=== PATIENT | female | born 1965 | race Caucasian/White ===

== ENCOUNTER 2017-03-13 09:56 | Inpatient (IN) | payer OTHER ==
[2017-03-13 11:45] LABS: % IMMATURE GRANULYOCYTES 0.3 % (0.0-1.1); ABSOLUTE IMMATURE GRANULOCYTES 0.01 10^3/uL (0.00-0.10); ADD DIFF? NO; ADD MORPH? NO; ADD SCAN? NO; ATYPICAL LYMPHOCYTE FLAG 10 (0-99); FRAGMENT RBC FLAG 0 (0-99); HEMATOCRIT 41.7 % (38.0-47.0); HEMOGLOBIN 14.3 g/dL (12.6-16.3); LEFT SHIFT FLG 0 (0-99); LIPEMIA HEMOLYSIS FLAG 90 (0-99); MEAN CELL HEMOGLOBIN 31.6 pg (27.9-34.1); MEAN CELL HEMOGLOBIN CONCENTR. 34.3 g/dL (32.4-36.7); MEAN CELL VOLUME 92.1 fL (81.5-99.8); MEAN PLATELET VOLUME 9.4 fL (8.7-11.7); PLATELET CLUMPS FLAG 0 (0-99); PLATELET COUNT 186 10^3/uL (150-400); RED BLOOD CELL COUNT 4.53 10^6/uL (4.18-5.33); RED CELL DISTRIBUTION WIDTH 11.9 % (11.5-15.2)
[2017-03-13 12:00] LABS: ANION GAP 9 mEq/L (8-16); CALCIUM 9.5 mg/dL (8.5-10.4); CARBON DIOXIDE 24 mEq/l (22-31); CHLORIDE 108 mEq/L (97-110); CREATININE 0.6 mg/dL (0.6-1.0); ETHANOL SERUM < 10 mg/dL (0-10); GLOMERULAR FILTRATION RATE > 60; GLUCOSE 93 mg/dL (70-100); POTASSIUM 3.9 mEq/L (3.5-5.2); SALICYLATE < 1.0 mg/dL (2.0-20.0); SODIUM 141 mEq/L (134-144)
[2017-03-13] MEDS ORDERED: BACLOFEN 10 MG TAB PO ONE (13:29)
--- NOTE | 2017-03-13 13:46 | EDPHY ---
H & P Stated Complaint: depression, SI, plan to take oTC pills - Personal History LMP (Females 10-55): Hysterectomy Current Tetanus/Diphtheria Vaccine: Yes Current Tetanus Diphtheria and Acellular Pertussis (TDAP): Yes - Medical/Surgical History Hx Asthma: No Hx Chronic Respiratory Disease: No Hx Diabetes: No Hx Cardiac Disease: No Hx Renal Disease: No Hx Cirrhosis: No Hx Alcoholism: No Hx HIV/AIDS: No Hx Splenectomy or Spleen Trauma: No Other PMH: MS breast CA with double mastectomies; hysterectomy - Social History Smoking Status: Never smoked HPI/ROS: Chief complaint: Suicidal ideation with plan History of present illness: This is a 51-year-old female who presents to the emergency department with family on her own for evaluation of suicidal ideation with plan. Patient with multiple medical problems. She is feeling very depressed. She feels like there is no reason to live. She is thinking of killing herself by overdosing on llek-nhj-huufhaa medications. She has not attempted at this time. She denies homicidal ideation. She denies illness or injury. Review of systems: A 10 point review of systems was obtained and other than described above was negative (Kishor Caceres) - Physical Exam Exam: General Appearance: Alert, nontoxic. Eyes: Pupils equal and round no pallor or injection. ENT, Mouth: Mucous membranes moist. Respiratory: There are no retractions, lungs are clear to auscultation. Cardiovascular: Regular rate and rhythm. Gastrointestinal: Abdomen is soft and nontender, no masses, bowel sounds normal. Neurological: Alert and oriented x4. Strength and sensation intact and symmetrical. Skin: Warm and dry, no rashes. Musculoskeletal: Neck is supple nontender. Extremities are symmetrical, full range of motion. Psychiatric: Patient is tearful. (Kishor Caceres) Constitutional: Initial Vital Signs Temperature (C) 36.5 C 03/13/17 10:02 Heart Rate 89 03/13/17 10:02 Respiratory Rate 16 03/13/17 10:02 Blood Pressure 162/106 H 03/13/17 10:02 O2 Sat (%) 98 03/13/17 10:02 O2 Delivery Mode Room Air Allergies/Adverse Reactions: Penicillins Allergy (Mild, Verified 04/29/14 21:49) Rash Home Medications: Medication Instructions Recorded Baclofen [Baclofen 10 mg (*)] 15 mg PO QID 07/06/12 Multivitamins [Multivitamin (*)] 1 each PO DAILY 07/06/12 Dalfampridine [Ampyra] 10 mg PO BID 03/13/17 Escitalopram Oxalate [Lexapro] 20 mg PO HS 03/13/17 Herbals/Supplements -Info Only 1 ea PO DAILY 03/13/17 Ibuprofen [Motrin (*)] 200 mg PO DAILY PRN 03/13/17 Tamoxifen Citrate 20 mg PO HS 03/13/17 Medical Decision Making ED Course/Re-evaluation: Patient seen under the supervision of my secondary supervising physician Dr. Donavan Diaz. Patient presents to the emergency department for evaluation of suicidal ideation with plan. She is medically evaluated and cleared for psychiatric evaluation. This is pending at time of dictation. Care of patient is turned over to my attending physician Dr. Mateo Weiss end of shift. (Kishor Caceres) Patient has been accepted at [address] [place] [address]. I have completed transfer paperwork. ( Mateo Weiss) Differential Diagnosis: Included but not limited to substance abuse, anxiety, depression, bipolar (Kishor Caceres) - Data Points Laboratory Results: Laboratory Results 03/13/17 11:34 03/13/17 11:34 03/13/17 03/13/17 03/13/17 11:34 11:34 11:34 WBC 3.36 10^3/uL L 10^3/uL (3.80-9.50) RBC 4.53 10^6/uL 10^6/uL (4.18-5.33) Hgb 14.3 g/dL g/dL (12.6-16.3) Hct 41.7 % % (38.0-47.0) MCV 92.1 fL fL (81.5-99.8) MCH 31.6 pg pg (27.9-34.1) MCHC 34.3 g/dL g/dL (32.4-36.7) RDW 11.9 % % (11.5-15.2) Plt Count 186 10^3/uL 10^3/uL (150-400) MPV 9.4 fL fL (8.7-11.7) Neut % (Auto) 61.3 % % (39.3-74.2) Lymph % (Auto) 26.2 % % (15.0-45.0) [place] % (Auto) 10.7 % % (4.5-13.0) Eos % (Auto) 1.2 % % (0.6-7.6) Baso % (Auto) 0.3 % % (0.3-1.7) Nucleat RBC Rel Count 0.0 % % (0.0-0.2) Absolute Neuts (auto) 2.06 10^3/uL 10^3/uL (1.70-6.50) Absolute Lymphs (auto) 0.88 10^3/uL L 10^3/uL (1.00-3.00) Absolute Monos (auto) 0.36 10^3/uL 10^3/uL (0.30-0.80) Absolute Eos (auto) 0.04 10^3/uL 10^3/uL (0.03-0.40) Absolute Basos (auto) 0.01 10^3/uL L 10^3/uL (0.02-0.10) Absolute Nucleated RBC 0.00 10^3/uL 10^3/uL (0-0.01) Immature Gran % 0.3 % % (0.0-1.1) Immature Gran # 0.01 10^3/uL 10^3/uL (0.00-0.10) Sodium 141 mEq/L mEq/L (134-144) Potassium 3.9 mEq/L mEq/L (3.5-5.2) Chloride 108 mEq/L mEq/L (97-110) Carbon Dioxide 24 mEq/l mEq/l (22-31) Anion Gap 9 mEq/L mEq/L (8-16) BUN 18 mg/dL mg/dL (7-23) Creatinine 0.6 mg/dL mg/dL (0.6-1.0) Estimated GFR > 60 Glucose 93 mg/dL mg/dL (70-100) Calcium 9.5 mg/dL mg/dL (8.5-10.4) Beta HCG, Qual NEGATIVE Salicylates < 1.0 mg/dL L mg/dL (2.0-20.0) Urine Opiates Screen Acetaminophen < 10 mcg/mL L mcg/mL (10.0-30.0) Urine Barbiturates Ur Phencyclidine Scrn Ur Amphetamine Screen U Benzodiazepines Scrn Urine Cocaine Screen U Marijuana (THC) Screen Ethyl Alcohol < 10 mg/dL mg/dL (0-10) 03/13/17 11:10 WBC RBC Hgb Hct MCV MCH MCHC RDW Plt Count MPV Neut % (Auto) Lymph % (Auto) [place] % (Auto) Eos % (Auto) Baso % (Auto) Nucleat RBC Rel Count Absolute Neuts (auto) Absolute Lymphs (auto) Absolute Monos (auto) Absolute Eos (auto) Absolute Basos (auto) Absolute Nucleated RBC Immature Gran % Immature Gran # Sodium Potassium Chloride Carbon Dioxide Anion Gap BUN Creatinine Estimated GFR Glucose Calcium Beta HCG, Qual Salicylates Urine Opiates Screen NEGATIVE (NEGATIVE) Acetaminophen Urine Barbiturates NEGATIVE (NEGATIVE) Ur Phencyclidine Scrn NEGATIVE (NEGATIVE) Ur Amphetamine Screen NEGATIVE (NEGATIVE) U Benzodiazepines Scrn NEGATIVE (NEGATIVE) Urine Cocaine Screen NEGATIVE (NEGATIVE) U Marijuana (THC) Screen NEGATIVE (NEGATIVE) Ethyl Alcohol Medications Given: Discontinued Medications Baclofen (Baclofen) 15 mg PO EDNOW ONE Stop: 03/13/17 13:30 Last Admin: 03/13/17 13:38 Dose: 15 mg Departure - Departure Disposition: [facility] IP Clinical Impression: Suicidal ideation Condition: Fair Referrals: Jesus Hernandez MD [Primary Care Provider] - As per Instructions
[2017-03-13] MEDS ORDERED: BACLOFEN 10 MG TAB ONE (19:44)
[2017-03-13] MEDS ORDERED: BACLOFEN 20 MG TAB PO ONE (19:48)
[2017-03-13] MEDS ORDERED: DALFAMPRIDINE PO ONE (20:04)
[2017-03-13] MEDS ORDERED: LORazepam 0.5 MG TAB PO PRN (21:27)
[2017-03-13] MEDS ORDERED: MAGNESIUM HYDROXIDE 30 ML UDCUP PO PRN (21:27)
[2017-03-13] MEDS ORDERED: ACETAMINOPHEN 325 MG TAB PO PRN (21:27)
[2017-03-13] MEDS ORDERED: MAG HYDROX/AL HYDROX/SIMETH 30 ML UDCUP PO PRN (21:27)
[2017-03-13] MEDS ORDERED: IBUPROFEN 200 MG TAB PO PRN (21:28)
[2017-03-13] MEDS ORDERED: BACLOFEN 10 MG TAB PO SCH (22:00)
[2017-03-13] MEDS: ESCITALOPRAM OXALATE 10 MG TAB PO SCH (22:29)
[2017-03-13] MEDS: TAMOXIFEN CITRATE 10 MG TAB PO SCH (22:45)
[2017-03-14] MEDS: BACLOFEN 10 MG TAB PO SCH ×4 (06:02→20:47)
[2017-03-14] MEDS ORDERED: Dalfampridine [Ampyra] 10 MG PO SCH (09:00)
[2017-03-14] MEDS: Dalfampridine [Ampyra] 10 MG PO SCH ×3 (13:45→20:46)
--- NOTE | 2017-03-14 15:22 | BCON ---
[f rep st] BEHAVIORAL HEALTH CONSULTATION INTERNAL MEDICINE CONSULTATION REFERRING PHYSICIAN: Tyler Borges MD REASON FOR REFERRAL: Medical clearance for inpatient behavioral health stay. HISTORY OF PRESENT ILLNESS: The patient came to the emergency department yesterday with her family for evaluation of suicidal ideation with a plan. She was evaluated by the mental health team and admitted for further psychiatric care. She currently is without any acute complaints. PAST MEDICAL HISTORY: 1. Breast cancer, status post mastectomy. 2. Multiple sclerosis. 3. History of a right elbow fracture. PAST SURGICAL HISTORY: 1. Bilateral mastectomy. 2. Hysterectomy. MEDICATIONS: Prior to admission: 1. Tamoxifen 20 mg p.o. at bedtime. 2. Multivitamin 1 p.o. daily. 3. Ibuprofen 200 mg p.o. daily p.r.n. 4. Dalfampridine 10 mg p.o. b.i.d. 5. Escitalopram 20 mg p.o. at bedtime. 6. Baclofen 15 mg p.o. q.i.d. ALLERGIES: There is an allergy listed to penicillin. SOCIAL HISTORY: She is . She lives with her . 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 She has 2 adult daughters. She is a nonsmoker. She used to play the piano, but is no longer able to do that. FAMILY HISTORY: She reports an uncle with multiple sclerosis as well as depression. REVIEW OF SYSTEMS: She reports that she feels cold all the time. She thinks functionally she has been stable. She does get regular exercise on stationary bicycle, but not at a very intense level. She has difficulty ambulating and uses a front-wheeled walker. She has weakness greater on the right upper extremity than on the left and also greater in the right lower extremity than the left lower extremity. She denies fevers, chills, cough, dyspnea, chest pain , palpitations, nausea, vomiting, constipation, diarrhea, dysuria or urinary frequency. Otherwise, a 10-point review of systems is negative. PHYSICAL EXAM: VITAL SIGNS: Blood pressure this morning at 6 a.m. was 120/84, heart rate was 96, respiratory rate was 14, oxygen saturation was 90% on room air. Temperature was 36.8. Her weight was 65.8 kg, for a body mass index of 25.7. Her blood pressure was markedly elevated in the emergency department, as high as 182/112 yesterday afternoon. GENERAL: This is a well-nourished, well- developed woman who appears her chronologic age, cooperative and in no acute distress. HEENT: Extraocular movements are intact. Pupils are equal, round, and reactive to light. Mucous membranes are moist. Dentition is in good condition. NECK: Supple. HEART: There is a regular rate and rhythm with no murmurs, rubs, or gallops. LUNGS: Clear to auscultation bilaterally. ABDOMEN : Soft, nontender, nondistended with normoactive bowel sounds. EXTREMITIES: There is no cyanosis, clubbing, or edema. There is some muscular atrophy in the intrinsic muscles of the right hand. NEUROLOGIC: She is alert and oriented x3. Cranial nerves 2-12 are grossly intact, though she is mildly dysarthric. Regarding motor strength, she has weakness of the right hand, especially of the right lower extremity. Regarding gait, she has a flexed posture and short steps using a 4-wheeled walker, and it is notable that after using the toilet shortly before this exam, she was unable to hike her pants all the way over her buttocks. LABORATORY STUDIES: From the emergency department: CBC showed a low white blood cell count at 3.36, but otherwise was within normal limits. Serum chemistry showed normal renal function and electrolytes, and on 03/10/2017, a TSH was also normal. Toxicology screen in the serum was negative for salicylates, acetaminophen or ethyl alcohol, and in the urine was negative for any substances of abuse. ASSESSMENT/RECOMMENDATIONS: 1. Mental health issues, pending further evaluation and management per Psychiatry and the mental health team. 2. Multiple sclerosis. Continue dalfampridine and baclofen. I have ordered physical and occupational therapy evaluations. Perhaps her functional status can be improved while she is here. She is on interferon beta-1a, and she reports her next dose is due in May. She uses is approximately every 6 months. 3. Elevated blood pressure of unclear etiology. She reports that she was under stress yesterday. Advised following her blood pressure, and should it be persistently elevated, then could either initiate antihypertensive treatment while she is on the behavioral health unit, or refer for followup with her primary care provider. 4. History of breast cancer. Advised continuing tamoxifen. 5. Leukopenia of unclear etiology. Reviewing her chart, it has been intermittent. She has a normal absolute neutrophil count, so she is not at risk for opportunistic infections. I see no medical contraindications to the patient's continued stay on the inpatient behavioral health unit or to any psychiatric medications or procedures. Thank you very much for including me in the care of this patient. Please do not hesitate to contact me or the hospitalist service should there be need for further medical evaluation. /[id number]/MODL MTDD
--- NOTE | 2017-03-14 15:57 | BAPA ---
[f rep st] ADMISSION PSYCHIATRIC ASSESSMENT DATE OF SERVICE: 03/14/2017 CHIEF COMPLAINT: "I need to reinvent myself." HISTORY OF PRESENT ILLNESS: Patient is a 51-year-old female with a history of multiple sc lerosis, breast cancer, and depression. She reports being first treated with antidepressants about 6 years ago after becoming depressed while taking Betaseron for the treatment of her multiple sclero sis. She states it was started by her neurologist at 10 mg and then increased eventually to 20 mg. She reports good effect from this, with an overall stable mood through the remainder of her Betaser on treatment, as well as her diagnosis and treatment for breast cancer. She states, however, in the last year, she has noticed an overall decline in her mood. She reports feeling helpless, hopeless, and trapped as she has become more physically disabled in the last year. She has had to give up dr soto and has not been able to socialize as she would like. She is dependent on her and fee ls guilty about this. She states that she feels like she is a burden to others, has nothing to cont ribute to the world, and has become increasingly guilty about herself. She reports continuing the L exapro but believing it is no longer being helpful. Her main source of stress is her ongoing physic al illness and increasing incapacitation with the multiple sclerosis. She reports thoughts of suici de with a plan to overdose on pills, but reports that she would likely not do this due to overall gu ilt that it would negatively impact her daughters. She states that she struggles with stress in her marriage, as her is supportive but also voices his stress in relation to her illness and th e restrictions it places on his life. He has gone for work 2-3 nights a week, and she feels lonely when he is not home. Yesterday, she stated that they went to her outpatient oncology appointment an d she was told that she would have to continue tamoxifen for another year and a half when she though t she was going to be able to stop it. She notes no specific negative effects from the tamoxifen, t akosua took this to mean that she was not well. She states that she does not like to take pills as t hey are "little reminders that I am sick." She reports a significant downturn in her mood and incre asing anxiety after this, and she voiced thoughts of suicide to her . contacted the patient's neurologist, who referred her to the emergency department for evaluation. In the emergenc y department, she continued to voice thoughts of suicide and was placed on an M1 hold and admitted t o the [facility] for further evaluation. Today, she states that she st karen to view herself as being sick, and that she has lost enjoyment in life, as well as feeling l julia a burden as mentioned above. She states that she needs to "reinvent myself" to be better able t o assimilate this new role into her personality or self view. She reports wanting to be happy and n ot feel guilty and like a burden. PAST PSYCHIATRIC HISTORY: Patient denies any previous psychiatric hospitalizations or suicide attem pts. She has had individual psychotherapy in the past with a Mary Ellen Best, but has not seen her in ov er 3 years. She has also had several rounds of marital therapy, though she states that this has not been helpful. She is taking no medicines besides Lexapro. ALLERGIES: Penicillin. CURRENT MEDICATIONS: Ampyra 20 mg daily, baclofen 15 mg q.i.d., Lexapro 20 mg h.s., and tamoxifen 2 0 mg at bedtime. PAST MEDICAL HISTORY: Significant for the breast cancer and bilateral mastectomies, multiple sclero sis, and status post total abdominal hysterectomy. SOCIAL HISTORY: Patient was born in [place] but grew up in [place]. Her parents were Anabapt[employer] m issionaries in [place]. She reports a happy childhood though separation from her extended family, be ing overseas. She has been for more than 20 years and has 2 daughters. One daughter has a degree in [employer] engineering and works in a mine in [place], and the other daughter is a student at [employer], [employer]. She is a high school graduate and has some college. Her was jeffery Recinos, and she states that they moved every 2 years throughout her children's childhood. They di d move to a [place] 11 years ago and have lived here since that time. She has a brother who lives in [place], [place], to whom she states she is close. Her parents are both . She notes no other stresses besides her physical illnesses. SUBSTANCE ABUSE HISTORY: Patient drinks approximately 5 drinks per week. FAMILY HISTORY: Significant for depression and anxiety in her mother that was made worse by treatme nt with tamoxifen when she herself had breast cancer. ADMISSION LABORATORY: CBC shows a white count slightly down at 3.36; otherwise normal. Serum chemi stries are normal. Beta hCG is negative. Urine drug screen is negative for all substances. MENTAL STATUS EXAMINATION: A healthy-appearing female. She is casually but appropriately dressed. She interacts well with the examiner, displaying good eye contact and a calm and pleasant demeanor. Her speech is somewhat slowed and slurred, consistent with her multiple sclerosis. Her affect is dysphoric and tearful, though demonstrates good range. Her mood is described as "depresse d." Her thought process is linear and goal directed. Her thought content reveals no evidence of ps ychosis. She is alert and oriented to person, place, time, and situation, and her sensorium is amarilys r. Her intellect appears to be at least average as evidenced by her educational history, fund of [employer], and vocabulary. She continues to endorse thoughts of suicide, identifying a plan to overdo se on medications. She states she is currently safe and has no desire to act on these. Her insight and judgment appear to be good. IMPRESSION: 1. Major depressive disorder, recurrent, severe, without psychosis. 2. Multiple sclerosis. 3. Breast cancer. 4. Chronic and progressive illness. 5. Marital stress. Patient is a 51-year-old female with multiple medical illnesses, who presents at this time with acute depression related, in large part, to her psychosocial stressor of illness. She has don e well on the Lexapro, but this seems to have lost effect. I have discussed with her potential inte rventions and have reviewed the case also with her . We will hold off on making medication c hanges today to better understand the influence of the various factors. I have told her that a swit ch to another SSRI might be of benefit, as she could be experiencing some burnout from the Lexapro. We will otherwise maintain her on suicide precautions and fall precautions and continue to provide serial clinical interviews for diagnostic clarity and to formulate a treatment plan. ESTIMATED LENGTH OF STAY: 3-5 days. /[id number]/MODL
[2017-03-14] MEDS: MULTIVITAMINS 1 EACH TAB PO SCH (20:45)
[2017-03-14] MEDS: ESCITALOPRAM OXALATE 10 MG TAB PO SCH (20:48)
[2017-03-14] MEDS: TAMOXIFEN CITRATE 10 MG TAB PO SCH (20:49)
[2017-03-15] MEDS: BACLOFEN 10 MG TAB PO SCH ×4 (06:09→21:50)
[2017-03-15] MEDS: Dalfampridine [Ampyra] 10 MG PO SCH ×2 (08:39→21:50)
[2017-03-15] MEDS: FLUoxetine 20 MG CAP PO SCH (12:11)
--- NOTE | 2017-03-15 15:05 | SOAPPROG ---
DAVID Progress Note Assessment/Plan: Assessment: Plan: 03/15/17 15:05 Remains engaged, coop. Will proceed as above. Subjective: Pt seen, discussed with staff. Reports "having a lot to think about last night " which may have interrupted her sleep. I reviewed with her again the options for possible medication changes. She is agreeable to changing Lexapro to fluoxetine to address possible burnout. I spoke with her oncologist, Dr. Melgar , who recommends stopping tamoxifen for three months to see if her mood improves. Objective: Vital Signs Temp Pulse Resp BP Pulse Ox 36.2 C 97 15 129/79 H 96 03/15/17 06:00 03/15/17 06:00 03/15/17 06:00 03/15/17 06:00 03/15/17 06:00 - Time Spent With Patient Time Spent With Patient: 25" ICD10 Worksheet Patient Problems: Problems Problem Status Onset Suicidal ideation Acute
[2017-03-15] MEDS: MULTIVITAMINS 1 EACH TAB PO SCH (21:50)
[2017-03-16] MEDS: BACLOFEN 10 MG TAB PO SCH ×2 (06:00→12:14)
[2017-03-16 06:31] VITALS: BP 127/78; PULSE 90; RESP 96; TEMP 97.2; O2SAT 14
[2017-03-16] MEDS: MULTIVITAMINS 1 EACH TAB PO SCH (08:16)
[2017-03-16] MEDS: Dalfampridine [Ampyra] 10 MG PO SCH (08:16)
[2017-03-16] MEDS: FLUoxetine 20 MG CAP PO SCH (08:16)
--- NOTE | 2017-03-16 19:08 | BDS ---
[f rep st] BEHAVIORAL HEALTH DISCHARGE SUMMARY REASON FOR ADMISSION: Patient is a 51-year-old female who was admitted from the emergency department due to suicidal ideation. She has multiple serious medical conditions, including multip le sclerosis and breast cancer, and had been deteriorating both physically and emotionally over the last several weeks. She was increasingly helpless and hopeless, feeling like she was unproductive a nd was experiencing a lot of shame and guilt related to feeling like a burden to her and fam kateryna. She had seen her oncologist earlier in the week who told her that she would need to be on the tamoxifen another year and a half which was a surprise to her having thought she was about to comple te the 5-year course. She states that this made her feel more hopeless, and she began having though ts of suicide with a plan to overdose on her medications. A full description of the events precedin g admission can be found in her admission history dated 03/14/2017. ADMITTING DIAGNOSES: 1. Major depressive disorder, recurrent, severe, without psychosis. 2. Multiple sclerosis. 3. Breast cancer, chronic and progressive illness. 4. Marital stress. ADMISSION PHYSICAL EXAMINATION: Performed by Dr. Narendra Lira reveals no acute physical findings . ADMISSION LABORATORY: CBC showed a white count slightly low at 3.36, otherwise normal. Serum chemi stries were normal. Beta-hCG was negative. Urine drug screen is negative for all substances. HOSPITAL COURSE: Patient was admitted to the behavioral health services inpatient unit on an M1 hol d. She was pleasant, cooperative and quite engaging. She did appear to be depressed as she display ed a dysphoric affect and was tearful throughout her initial interview. She described her feelings of shame and guilt in being a burden on her family, especially her . She also described some difficult interactions with her where he would voice his frustrations as well, and this wou ld intensify her negative thoughts. She was willing to look at her antidepressant regimen, and I di scussed the case with Dr. Melgar, her outpatient oncologist. Dr. Melgar informed me that the patien t had actually agreed to stop the tamoxifen for about 3 months to see if this made an improvement in her mood. I described the possibility of the SSRI burnout syndrome, and Dr. Melgar was agreeable t o changing from Lexapro to Prozac. I discussed this also with the patient who thought this was a re asonable plan. We started Prozac [address] of Lexapro 20 mg, and she tolerated this well with no side effects. I discussed with Dr. Melgar that if in fact they decided to go back on the tamoxif en, that she could be switched back to Lexapro or a different SSRI at that time after she informed dany crocker that the 2D6 inhibitors can block the conversion of the tamoxifen to its active form. Patient's hospitalization was otherwise uncomplicated. She was cooperative, interactive, and very a ppropriate with all staff and fellow patients. She participated actively in all therapies. On the day of discharge, she was extremely bright, displaying an euthymic, stable affect, and stating that she had not felt that well in quite some time. She attributed this mostly to having reached out for help, and was very pleased with the response of her and her mosque community. CONDITION ON DISCHARGE: Stable. Her affect was euthymic, stable, and appropriate. Her mood was go od, and she was having no thoughts of suicide. DISCHARGE MEDICATIONS: Multivitamin 1 daily, baclofen 15 four times a day, Ampyra 10 mg b.i.d., and fluoxetine 20 mg daily. It is of note that I inadvertently clicked the wrong box on the discharge order set and indicated that she would be continuing to take the Lexapro. This is incorrect, we swi tched from Lexapro to Prozac. DISCHARGE DIAGNOSES: 1. Major depressive disorder, recurrent, severe without psychosis. 2. Multiple sclerosis. 3. Breast cancer, chronic and progressive illness. 4. Marital stress. DISPOSITION: Patient left the hospital with her . FOLLOW UP: With a therapist at the behavioral health services outpatient counseling center in . This therapist works a lot with patients with chronic illnesses and cancer. LEGAL COURSE: Patient was discharged at the expiration of her M1 hold. /[id number]/MODL
== END 2017-03-16 12:44 | disposition home or self-care (01) | DRG 885 ==
LOC: EEVIPCON 09:56 → BBEH 20:25
PROVIDERS: ADMIT Psychiatry & Neurology Psychiatry; ATTEND Psychiatry & Neurology Psychiatry
DX: F33.2 Major depressive disorder, recurrent severe without psychotic features (principal); G35 Multiple sclerosis; C50.919 Malignant neoplasm of unspecified site of unspecified female breast
CPT/HCPCS: 80305; G0480

== ENCOUNTER 2018-02-17 21:48 | Emergency (ER) | payer OTHER ==
[2018-02-17 22:15] VITALS: BP 137/66
[2018-02-17] MEDS ORDERED: ACETAMINOPHEN 500 MG TAB PO ONE (22:48)
--- NOTE | 2018-02-17 22:50 | EDPHY ---
H & P Time Seen by Provider: 02/17/18 21:57 HPI/ROS: This patient presents with scalp laceration from a fall in her bathroom and glancing blow versus her metal edge of her wheelchair against her occipital scalp shortly prior to arrival. Her doing urine but found her in the bathroom with her laceration 5 min after the wound. The patient reports only localized pain from the skin injury. She explains that she has a history of MS and she has been feeling very strong lately and well with no new MS symptoms. Physical therapy is going well and she feels that she simply try to move too quickly in transitioning from shower to toilet and lost her balance, falling backwards. She denies headache or any other injuries from the incident. There has been moderate bleeding from the scalp wound with control from direct pressure applied prior to arrival. Her brought her here by private vehicle for further evaluation. ROS: Constitutional: She felt well lately with no fevers or chills. No significant fatigue. HEENT: No facial injuries or dental injuries. Pulmonary: No chest wall pain or shortness of breath Cardiovascular: No heart palpitations. No chest pain. GI: No abdominal pain Integumentary: No lacerations other than the scalp laceration Neuro: No new symptoms. She denies any LOC. She has no headache. She was not dazed from the episode. Her reports that the patient is able to appropriately describe exactly how she fell and had a clear mental status upon his arrival home shortly after her fall. 7 point ROS is otherwise negative. Past Medical/Surgical History: MS Smoking Status: Never smoked Physical Exam: Physical exam: Vital signs are normal General: Patient is in no acute distress. HEENT: Patient has a 3 cm occipital scalp laceration. This is full-thickness in that is gaping open by 8 mm with a small subcutaneous hematoma but no deeper structures injured no underlying bony deformity or tenderness. Nose atraumatic. Ears: Clear bilaterally with no hemotympanum. Oropharynx: No dental trauma or malocclusion. No intraoral lacerations. Eyes: Pupils are equal and reactive to light. Extraocular motions are intact. Optic fundi: Clear with no papilledema or hemorrhage. Neck: Trachea is midline with no stridor. The patient has no midline neck tenderness and retains a full range of motion without increase in pain. Lungs: Clear to auscultation bilaterally Cardiac: Regular rate and rhythm no murmur gallop or rub. Chest: Nontender. Abdomen: Soft nontender no organomegaly Back: Nontender Extremities: Atraumatic Neuro: GCS of 15. Cranial nerves II through XII grossly intact. Constitutional: Initial Vital Signs Temperature (C) 36.6 C 02/17/18 22:13 Heart Rate 85 02/17/18 22:13 Respiratory Rate 18 02/17/18 22:13 Blood Pressure 137/66 H 02/17/18 22:13 O2 Sat (%) 96 02/17/18 22:13 O2 Delivery Mode Room Air Allergies/Adverse Reactions: Penicillins Allergy (Mild, Verified 04/29/14 21:49) Rash Home Medications: Medication Instructions Recorded Baclofen [Baclofen 10 mg (*)] 15 mg PO QID 07/06/12 Multivitamins [Multivitamin (*)] 1 each PO DAILY 07/06/12 Dalfampridine [AMPYRA] 10 mg PO BID 03/13/17 Escitalopram Oxalate [Lexapro] 20 mg PO HS #30 tablet 03/16/17 Cyclobenzaprine 02/17/18 MDM/Departure - MDM Procedures: The wound is 3 cm in length. The wound was copiously irrigated with saline. The wound was explored for foreign bodies and none were found. The wound was prepped and draped in the normal sterile fashion. The wound was anesthetized using a 50 50 mix of 0.5% Marcaine and 1% lidocaine. The edges were reapproximated using 4 0 Prolene PC 5 needle, 9 running sutures with good hemostasis and cosmesis. The patient tolerated the procedure well. There were no complications. Medications Given: Discontinued Medications Acetaminophen (Tylenol) 1,000 mg PO EDNOW ONE Stop: 02/17/18 22:49 Last Admin: 02/17/18 22:56 Dose: 1,000 mg ED Course/Re-evaluation: Discussion: Patient with scalp wound without evidence of significant head injury or other accompanying injuries. Counseled patient regarding suture care and minor head injuries. She understands need to return emergency department should she develop significant headache, confusion or other concerns. She will follow up here for suture removal in 7 days. - Depart Disposition: Home, Routine, Self-Care Clinical Impression: Scalp laceration Qualifiers: Encounter type: initial encounter Qualified Code(s): S01.01XA - Laceration without foreign body of scalp, initial encounter Condition: Good Instructions: Care For Your Stitches (ED) Additional Instructions: Diagnosis: Scalp laceration Your urinalysis tonight is normal without evidence of infection. Plan: Keep the wound clean and dry for the next 2 days then clean daily with warm soapy water-baby shampoo or similar in return for suture removal in 7 days Tylenol for pain as needed. Return sooner if you develops redness, discharge or other concerns for infection. Referrals: Patient,NotPresent [Primary Care Provider] - As per Instructions
== END 2018-02-17 23:02 | disposition home or self-care (01) ==
LOC: CED 21:48
PROC: 0HQ0XZZ Repair Scalp Skin, External Approach (ICD-10-PCS; principal; 2018-02-17)
DX: S01.01XA Laceration without foreign body of scalp, initial encounter (principal); W18.09XA Striking against other object with subsequent fall, initial encounter
CPT/HCPCS: 81015-PO

== ENCOUNTER 2018-04-12 15:34 | Day surgery (SDC) | payer OTHER ==
[2018-04-12] MEDS ORDERED: NS 1,000 ML IV ONE (15:48)
[2018-04-12] MEDS ORDERED: ONDANSETRON 4 MG/2 ML VIAL IVP ONE (15:48)
[2018-04-12] MEDS ORDERED: DIAZEPAM 10 MG/2 ML SYR IVP ONE (15:48)
--- NOTE | 2018-04-12 15:50 | EDPHY ---
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 Today she was in a hurry and tried taking 4 pills at once. She states that they got stuck. She states that it is painful to swallow. She states that she is able to get some fluids down but some also comes back up. She is spitting out her saliva. She has no respiratory distress. No shortness of breath or stridor. This happened around noon today. It is painful to swallow. She has not vomited. REVIEW OF SYSTEMS: Constitutional: denies: chills, fever, recent illness, recent injury EENTM: denies: blurred vision, double vision, nose congestion Respiratory: denies: cough, shortness of breath Cardiac: denies: chest pain, irregular heart rate, lightheadedness, palpitations Gastrointestinal/Abdominal: See HPI denies: abdominal pain, diarrhea, nausea, vomiting, blood streaked stools Genitourinary: denies: dysuria, frequency, hematuria, pain Musculoskeletal: denies: joint pain, muscle pain Skin: denies: lesions, rash, jaundice, bruising Neurological: denies: headache, numbness, paresthesia, tingling, dizziness, weakness Hematologic/Lymphatic: denies: blood clots, easy bleeding, easy bruising Immunologic/allergic: denies: HIV/AIDS, transplant EXAM: GENERAL: Well-appearing, well-nourished and in no acute distress. HEAD: Atraumatic, normocephalic. EYES: Pupils equal round and reactive to light, extraocular movements intact, sclera anicteric, conjunctiva are normal. ENT: Some trouble Handling secretions, pain with swallowing. No stridor in TMs normal, nares patent, oropharynx clear without exudates. Moist mucous membranes. NECK: Normal range of motion, supple without lymphadenopathy or JVD. LUNGS: Breath sounds clear to auscultation bilaterally and equal. No wheezes rales or rhonchi. HEART: Regular rate and rhythm without murmurs, rubs or gallops. ABDOMEN: Soft, nontender, normoactive bowel sounds. No guarding, no rebound. No masses appreciated. BACK: No CVA tenderness, no spinal tenderness, step-offs or deformities EXTREMITIES: Normal range of motion, no pitting or edema. No clubbing or cyanosis. NEUROLOGICAL: Cranial nerves II through XII grossly intact. Normal speech, normal gait. 5/5 strength, normal movement in all extremities, normal sensation PSYCH: Normal mood, normal affect. SKIN: Warm, dry, normal turgor, no visible rashes or lesions. Source: Patient, Family Exam Limitations: No limitations - Personal History LMP (Females 10-55): Hysterectomy - Medical/Surgical History Hx Asthma: No Hx Chronic Respiratory Disease: No Hx Diabetes: No Hx Cardiac Disease: No Hx Renal Disease: No Hx Cirrhosis: No Hx Alcoholism: No Hx HIV/AIDS: No Hx Splenectomy or Spleen Trauma: No Other PMH: MS breast CA with double mastectomies; hysterectomy,depression/ anxiety - Family History Significant Family History: No pertinent family hx - Social History Smoking Status: Never smoked Alcohol Use: Sober Constitutional: Initial Vital Signs Temperature (C) 36.8 C 04/12/18 15:41 Heart Rate 94 04/12/18 15:41 Respiratory Rate 18 04/12/18 15:41 Blood Pressure 168/109 H 04/12/18 15:41 O2 Sat (%) 98 04/12/18 15:41 O2 Delivery Mode Room Air Allergies/Adverse Reactions: Penicillins Allergy (Mild, Verified 04/29/14 21:49) Rash Home Medications: Medication Instructions Recorded Baclofen [Baclofen 10 mg (*)] 15 mg PO QID 07/06/12 Multivitamins [Multivitamin (*)] 1 each PO DAILY 07/06/12 Dalfampridine [AMPYRA] 10 mg PO BID 03/13/17 Escitalopram Oxalate [Lexapro] 20 mg PO HS #30 tablet 03/16/17 Cyclobenzaprine 02/17/18 FLUoxetine 04/12/18 riTUXimab 04/12/18 Medical Decision Making ED Course/Re-evaluation: 4:20 p.m. I discussed the case with Dr. Caity Tompkins from GI. He is agreeable with treatment thus far. She has received IV Valium. We discussed possibly getting her to the clinic for scope but at this point he says that is too late. If her symptoms do not resolve he requested we send her to the main ER where he will consult and scope. 5:40 p.m. The patient feels like she is able to drink soda however she is still spitting up large amounts of mucus and uncomfortable. We will try glucagon. 6:00 p.m. the patient seems to think that maybe it has passed and she is feeling somewhat better. 7:00 p.m. the patient still gags and retches when she tries to swallow water. We will transfer to [facility]. I spoke with Dr. Meadows. They will notify Dr. Tompkins when she arrives for upper endoscopy. Differential Diagnosis: Partial list of the Differential diagnosis considered include but were not limited to; esophageal foreign body, irritation, abrasion and although unlikely based on the history and physical exam, I also considered perforation, airway obstruction. - Data Points Medications Given: Discontinued Medications Diazepam (Valium) 2.5 mg IVP EDNOW ONE Stop: 04/12/18 15:49 Last Admin: 04/12/18 16:11 Dose: 2.5 mg Glucagon (Glucagon) 1 mg IVP EDNOW ONE Stop: 04/12/18 17:55 Last Admin: 04/12/18 18:17 Dose: 1 mg Sodium Chloride (Ns) 1,000 mls @ 0 mls/hr IV EDNOW ONE; Wide Open PRN Reason: Protocol Stop: 04/12/18 15:49 Last Admin: 04/12/18 16:07 Dose: 1,000 mls Ondansetron HCl (Zofran) 4 mg IVP EDNOW ONE Stop: 04/12/18 15:49 Last Admin: 04/12/18 16:07 Dose: 4 mg Departure - Departure Disposition: [facility] ER Clinical Impression: Esophageal foreign body Qualifiers: Encounter type: initial encounter Qualified Code(s): T18.108A - Unspecified foreign body in esophagus causing other injury, initial encounter Condition: Fair
[2018-04-12] MEDS ORDERED: GLUCAGON HCL 1 MG VIAL IVP ONE (17:54)
--- NOTE | 2018-04-12 20:15 | EDPHY ---
ED Progress Note Narrative: The patient was referred to the ED for evaluation by the mobile unit assistant. She continues to have a pill impaction. She did not receive an additional formal emergency department physician evaluation at the [facility] emergency department.
[2018-04-12] MEDS ORDERED: ROCURONIUM 50 MG/5 ML VIAL ONE (20:57)
[2018-04-12] MEDS ORDERED: PROPOFOL/EMULSION 500 MG/50 ML BOTTLE IV ONE (20:58)
[2018-04-12] MEDS ORDERED: fentaNYL 100 MCG/2 ML INJ ONE (20:58)
--- NOTE | 2018-04-12 21:01 | PDANEPAE ---
ANE History of Present Illness food impaction ANE Past Medical History - Pulmonary History Hx Oxygen in Use at Home: No Hx Sleep Apnea: No - Endocrine History Hx Diabetes: No - Neurological & Psychiatric Hx Hx Neurological and Psychiatric Disorders: Yes - Chronic Pain History Chronic Pain: No ANE Review of Systems Review of Systems: ANE Patient History - Allergies Allergies/Adverse Reactions: Penicillins Allergy (Mild, Verified 04/29/14 21:49) Rash - Home Medications Home Medications: Baclofen [Baclofen 10 mg (*)] 15 mg PO QID 07/06/12 [Last Taken 03/13/17 08:00] Multivitamins [Multivitamin (*)] 1 each PO DAILY 07/06/12 [Last Taken 07/13/12] Dalfampridine [AMPYRA] 10 mg PO BID 03/13/17 [Last Taken 03/13/17] Cyclobenzaprine 02/17/18 [Last Taken Unknown] FLUoxetine 04/12/18 [Last Taken Unknown] riTUXimab 04/12/18 [Last Taken Unknown] - Smoking Hx Smoking Status: Never smoked - Alcohol Use Alcohol Use: Sober ANE Labs/Vital Signs - Vital Signs Blood Pressure: 189/118 Heart Rate: 105 Respiratory Rate: 20 O2 Sat (%): 94 Height: 160.02 cm Weight: 65.771 kg ANE Physical Exam - Airway Neck exam: FROM Mallampati Score: Class 3 Mouth exam: normal dental/mouth exam - Pulmonary Pulmonary: no respiratory distress - Cardiovascular Cardiovascular: regular rate and rhythym - ASA Status ASA Status: III ANE Anesthesia Plan Anesthesia Plan: general endotracheal anesthesia, MAC
[2018-04-12] MEDS ORDERED: LABETALOL HCL 5 MG/ML 20 ML MDV IVP PRN (21:24)
[2018-04-12] MEDS ORDERED: NALOXONE HCL 0.4 MG/ML INJ IVP PRN (21:24)
--- NOTE | 2018-04-12 21:25 | GCON ---
[f rep st] CONSULTATION OUTPATIENT CONSULTATION NOTE REFERRING PHYSICIAN: Mateo Weiss MD Requesting physician is Dr. Weiss in the emergency room. REASON FOR CONSULTATION: Food impaction. CHIEF COMPLAINT: Difficulty swallowing. Briefly, the patient is a very pleasant 52-year-old female with a history of multiple sclerosis. She reports she has some moderate difficulties of swallowing at baseline, but she has never had any sign ificant food impaction or limitation on her swallowing or medication use. Today at approximately noo n, she took 4 pills all at once. At that time they got stuck. She reports it was painful to swallow . Since that time, she has been unable to tolerate any fluids or her own secretions. She is spittin g up her saliva into a cup. She denies any prior history of similar impaction or dysphagia symptoms. She does have mild indigestion on occasion, although even that is rare. ALLERGIES: Penicillin. MEDICATIONS: Outpatient home medicines include baclofen, multivitamins, Ampyra, Lexapro, cyclobenzap rine, fluoxetine, and rituximab. PAST MEDICAL HISTORY: Includes breast cancer, hysterectomy, depression, anxiety, and multiple sclero sis. FAMILY HISTORY: Includes breast cancer and ovarian cancer as well as diabetes. SOCIAL HISTORY: She does not smoke. She drinks rare alcohol. She does not use drugs. REVIEW OF SYSTEMS: A 14-point review was undertaken with the patient and the pertinent positives and negatives are detailed in the history of present illness. PHYSICAL EXAM: GENERAL: This is a well-developed female in no apparent distress. HEENT: Her pupil s are equal, round, reactive to light and accommodation. Her sclerae are nonicteric. Oropharynx is clear. NECK: Supple. HEART: Regular without murmur. LUNGS: Clear with good respiratory effort. ABDOMEN: Soft, nontender, with normoactive bowel sounds. EXTREMITIES: Free of cyanosis, clubbing, edema. NEURO: Consistent with gradually progressive multiple sclerosis. She has some muscular con tractions and deformities consistent with that illness. SKIN: Warm and dry without lesions. Her alexey ints show no arthritis. PSYCHIATRIC: Reveals normal mood and affect. LABORATORY DATA: There is none for review. IMPRESSION AND RECOMMENDATIONS: The patient has had pills impacted in her esophagus since approximat kamron noon today. They are not passing spontaneously. The differential diagnosis includes strictures, primary motility disorder, malignancy, eosinophilic esophagitis, etc. In order to resolve the food impaction, and hopefully to gain insight into the reasons for it, I recommend upper endoscopy. Given her multiple sclerosis and muscle weakness associated with potential foreign body in the esophagus, I will recommend she undergo this exam with the help of Anesthesia for airway protection and manageme nt. /[id number]/MODL
--- NOTE | 2018-04-12 21:26 | GIREPORT ---
[facility] Surgical Services - Endoscopy Department Patient Name: Diya Pearson Procedure Date: 04/12/2018 8:39 PM Patient Type: Emergency Department Attending MD/ ER Physician: Caity Tompkins MD Procedure: Upper GI endoscopy Indications: Foreign body in the esophagus Providers: Caity Tompkins MD Medicines: Sedation Administered by an Anesthesia Professional Complications: No immediate complications. Description of Procedure: After obtaining informed consent, the endoscope was passed under direct vision. Throughout the procedure, the patient's blood pressure, pulse, and oxygen saturations were monitored continuously. The Endoscope was intro duced through the mouth, and advanced to the third part of duodenum. The uppe r GI endoscopy was accomplished without difficulty. The patient tolerated th e procedure well. Findings: The middle third of the esophagus was normal. Biopsies were taken with a cold forceps for histology. A guidewire was placed and the scope was withdrawn. Dilation was performed with a Savary dilator with no resista nce at 54 Fr. The entire examined stomach was normal. The examined duodenum was normal. Estimated Blood Loss: Estimated blood loss: none. Post Op Diagnosis: - Normal middle third of esophagus. Biopsied. Dilated. No specific food /pill impaction was noted. Perhaps patient had esophageal spasm . Upper esoph ageal sphincter tone was high. - Normal stomach. - Normal examined duodenum. Recommendation: - Written discharge instructions were provided to the patient. - The signs and symptoms of potential delayed complications were discus sed with the patient. - Patient has a contact number available for emergencies. - Return to normal activities tomorrow. - Resume previous diet. - Pending response to dilation, could consider additional swallowing evaluation (barium swallow, manometry, etc). - Follow-up in GI clinic, if dysphagia symptoms are persistent despite the above. Attending Participation: I personally performed the entire procedure. Caity Tompkins MD Caity Tompkins MD 04/12/2018 9:26:23 PM This report has been signed electronicallyCaity Tompkins MD Number of Addenda: 0 Note Initiated On: 04/12/2018 8:39 PM [email or web address]
[2018-04-12] MEDS ORDERED: LABETALOL HCL 5 MG/ML 20 ML MDV ONE (21:31)
[2018-04-12] MEDS ORDERED: hydrALAZINE 20 MG/ML VIAL ONE (21:35)
--- NOTE | 2018-04-12 21:38 | POSTANESTH ---
Post Anesthetic Evaluation Cardiovascular Status: Normal, Stable Respiratory Status: Normal, Stable Level of Consciousness/Mental Status: Can Participate in Eval Pain Control: Adequate, Prn Tx Ordered Nausea/Vomiting Control: Adequate, Prn Tx Ordered Complications Possibly Related to Anesthesia: None Noted
[2018-04-12] MEDS ORDERED: hydrALAZINE 20 MG/ML VIAL IVP PRN (21:39)
[2018-04-12 22:13] VITALS: BP 142/98
== END 2018-04-12 22:15 | disposition home or self-care (01) ==
LOC: CED 15:34 → FSGY 20:27
PROVIDERS: ATTEND Internal Medicine Gastroenterology
DX: R13.10 Dysphagia, unspecified (principal); G35 Multiple sclerosis; F32.9 Major depressive disorder, single episode, unspecified; F41.9 Anxiety disorder, unspecified; Z85.3 Personal history of malignant neoplasm of breast; Z90.13 Acquired absence of bilateral breasts and nipples; Z90.711 Acquired absence of uterus with remaining cervical stump; Z88.0 Allergy status to penicillin
CPT/HCPCS: 96374; J0360; J1610; J2405; J2704; J3010; J3360